=== PATIENT | female | born 1950 | race Caucasian/White ===

== ENCOUNTER 2016-11-07 13:52 | Inpatient (IN) | payer MEDICARE ==
[~2016-11-07] VITALS: Ht 160 cm; Wt 90.7 kg
[2016-11-07 16:14] LABS: HEMATOCRIT 41.5 % (36.0-48.0); HEMOGLOBIN 14.1 g/dL (12-16); LYMPHOCYTES 11.6 % (15-50); MCH 30.7 pg (26.0-34.0); MCV 90.4 fL (80.0-100.0); MEAN PLATELET VOLUME 10.2 fL (7.4-10.4); NEUTROPHILS 83.2 % (40-80); PLATELET COUNT 189 10x3/uL (130-400); RBC 4.59 10x6/uL (4.00-5.40); RDW 12.8 % (11.5-14.5); WBC 9.9 10x3/uL (4.8-10.8)
[2016-11-07 16:23] LABS: APTT 20.6 SECONDS (22.8-39.4); INR 0.91 (0.85-1.17)
[2016-11-07 16:56] LABS: ALBUMIN 3.6 g/dL (3.4-5.0); ALKALINE PHOSPHATASE 100 U/L (46-116); ALT (SGPT) 20 U/L (10-68); BILIRUBIN - TOTAL 0.29 mg/dL (0.2-1.3); CALC OSMOLALITY 289 mosm/kg (275-300); CALCIUM 8.9 mg/dL (8.5-10.1); CARBON DIOXIDE 26.6 mmol/L (21.0-32.0); CHLORIDE - SERUM 104 mmol/L (98-107); CREATININE - SERUM 0.6 mg/dL (0.6-1.3); GLUCOSE 243 mg/dL (74-106); POTASSIUM - SERUM 4.2 mmol/L (3.5-5.1); PROTEIN - SERUM 6.8 g/dL (6.4-8.2); SODIUM 141 mmol/L (136-145); UREA NITROGEN 15 mg/dL (7-18); eGFR NON AFRICAN AMERICAN > 90 mL/min (90-120)
--- NOTE | 2016-11-07 23:10 | NUR ---
RECEIVED PT FROM RECOVERY. DAUGHTER AT BEDSIDE. COMPLETED ASSESSMENT. PT DENIES NEEDS AT THIS TIME. BED IN LOWEST POSITION AND CALL LIGHT WITHIN REACH. ENCOUARAGED THE PATIENT TO CALL IF SHE HAS NEEDS.
[2016-11-07] MEDS ORDERED: GLUCOPHAGE1000 MG PO (23:18)
[2016-11-07] MEDS ORDERED: LOPRESSOR25 MG PO (23:19)
[2016-11-07 23:32] VITALS: BP 144/84; BMI 35.5
[2016-11-08 04:00] VITALS: BP 116/59
[2016-11-08 05:54] LABS: HEMATOCRIT 36.4 % (36.0-48.0); HEMOGLOBIN 11.9 g/dL (12-16)
--- NOTE | 2016-11-08 07:30 | NUR ---
PATIENT RECEIVED IN MID RANKIN POSITION. NO SIGNS OF DISTRESS NOTED. DRESSING TO LEFT KNEE CLEAN, DRY AND INTACT WITH KNEE IMMOBILIZER IN PLACE. RATES PAIN 3/10. 5MG OXY IR ADMINISTERED PER PRN ORDER. NO FURTHER NEEDS VOICED. SIDE RAILS UP X2. BED IN LOW POSITION. CALL LIGHT IN REACH.
--- NOTE | 2016-11-08 08:20 | OP ---
PATIENT NAME: MATTHEW GARAY KATHRYN MEDICAL RECORD: [id number] :48 LOCATION:[id number] ADMISSION DATE:11/07/16 SURGEON: GEORGE RANGEL DO OPERATION DATE: 11/07/16 DATE OF OPERATION: 11/07/2016 PROCEDURE PERFORMED: Left intraarticular distal femur open reduction internal fixation and retrograde intramedullary nailing of the left femur. INDICATIONS: Intraarticular left distal femur fracture that Ms. Garay sustained at work when she tripped and fell and then could not bear weight on her left leg. She was taken to the ER by ambulance and x-rayed and seen to have a left distal femur fracture went into the articular surface. A CT was done confirming diagnosis and the patient opted to go to the operating room. After discussing the risks and benefits with the patient, she consented to it. PREOPERATIVE DIAGNOSIS: Left distal femur intraarticular fracture, closed. POSTOPERATIVE DIAGNOSIS: Left distal femur intraarticular fracture, closed. SURGEON: George Rangel DO. MAPPING EDITOR: Magalys Fisher, advanced nurse practitioner. PROCEDURE PERFORMED: As above. DESCRIPTION OF PROCEDURE: Ms. Garay is a 66-year-old female that came in through the ER. She was brought to the OR and in PACU given a femoral block for pain control and then taken back to the operative suite. She was placed in supine position in the ER bed and was sedated and intubated at that time, then moved over to the OR bed. Two grams Ancef were given preoperatively. Timeout was then performed and all parties were in agreement with the correct patient, correct side, and correct procedure was being performed. The left lower extremity was then prepped and draped in sterile fashion and the procedure started making an incision over the inferior part of the patella. The peritenon was incised and the patellar tendon was divided in half. The condyles were felt to be too to try to do a blind reduction and at that time an arthrotomy was performed. Incision was enlarged and medial parapatellar arthrotomy was performed and the knee joint was opened and the reduction was performed having exact reductions being held with a [id number] clamp. Two drills were then placed in the anterior aspect of the distal femur to hold the reduction and at that time, the insertion was made of the guide pin for the IM nail. The opening reamer was then placed over it and the starting reamer was reamed into the distal femur. A reduction tool was then used up into the shaft of the femur and the distal femur fracture was reduced to the shaft having the intercondylar fracture previously reduced with the bone clamps and the 2 drill bits and at that time, the guidewire was placed up into the shaft and up into the proximal femur just above the lesser trochanter. Length was then measured of the nail, which was a 340 mm was then reamed up to a 10-1/2 mm and was seen that a further reduction was required prior to getting 10-1/2 half and a drill was placed on the medial side of the guide pin just proximal to the distal femur fracture and then continued to ream up to 10-1/2. We decided there was enough chatter in the bone. At that time we used a 9 mm nail and the nail was then entered into the distal femur first and then up into the shaft, this was all OPERATIVE REPORT [id number] MATTHEW GARAY confirmed with fluoroscopy. Once the nail was set and seen to be in good position, the jig was placed on and the 2 distal screws went in from the lateral to the medial side. The oblique screw from medial to lateral side was then placed as well through the jig and the jig was removed. At that time, the 2 drill bits that had been placed prior to the nailing in the distal femur to hold the articular reduction were measured in order to use lag screws and they were placed at that time. There were 60 mm x 6.5 mm cannulated screws that were placed in that over those drill sites, seen to have a very good reduction and the rotation and alignment was adequate. Then, attention was then drawn to the proximal femur. Perfect circles were made and the very distal hole of the nail was used. The drill was placed through the anterior surface of the femur and then through the nail and then through the posterior cortex of the femur was measured to be a 36-mm screw and that was put into place. At this time, x-rays were taken and at the distal portion of the knee, the oblique screw from medial to lateral seemed to be too long and was removed at that time. The wounds were then copiously irrigated. The 2 liters of normal saline was used to irrigate the knee joint itself. The proximal incision where the locking screw was placed was irrigated as well and was closed with 2-0 Vicryl in an inverted interrupted fashion of the skin and then 3-0 Monocryl rather in a horizontal mattress fashion as were the other poke holes about the femur. The arthrotomy was closed with #1 Vicryl using a [id number]-[id number] stitch and the peritenon as well as patellar tendon were also closed. The peritenon was closed with 0 Vicryl, again irrigated over the closure and skin was approximated with 2-0 Vicryl and the ZipLine device was then used to close the skin over the knee and the other focal wounds for the screws. They went through the nail were closed with 2-0 Vicryl and 3-0 Monocryl in a horizontal mattress fashion. A 2-0 Vicryl was used in inverted interrupted fashion. After this, the skin was cleaned very thoroughly. Adaptic, 4 x 4s and ABD was placed over the distal part of the femur. At the proximal portion of the incision, 4 x 4s and Tegaderm and prior to that Adaptic was placed over that site. A Webril was then placed over the ABD of the distal portion over the knee and 6-inch Matthew wrap was placed as well. STEPHANIE hose was placed on her left lower extremity just to the knee and the patient was placed in a knee immobilizer. She was awakened in the operating room in stable condition and taken to the recovery room. TOTAL BLOOD LOSS: 300 mL. TRANSINT:[id number] Voice Confirmation ID: [id number] DOCUMENT ID: [id number] GEORGE RANGEL DO at 0820 CC: [id number] DICTATION DATE: 11/07/162220 COAL PASSER: 11/08/16 0247 ADM IN [facility] [address] [place] [address]
[2016-11-08 09:15] VITALS: BP 137/64
[2016-11-08] MEDS ORDERED: GLIMEPIRIDE4 MG PO (10:26)
[2016-11-08] MEDS ORDERED: CLARITIN 10 MG10 MG PO (10:26)
[2016-11-08] MEDS ORDERED: PRAVACHOL20 MG PO (10:26)
[2016-11-08] MEDS ORDERED: GLIMEPIRIDE2 MG PO (10:26)
[2016-11-08] MEDS ORDERED: ACTOS45 MG PO (10:26)
[2016-11-08] MEDS ORDERED: VITAMIN E400 UNI2 PO (10:27)
[2016-11-08] MEDS ORDERED: TAPAZOLE 10 MG10 MG PO (10:27)
[2016-11-08] MEDS ORDERED: CALCIUM 500 + D1 TAB PO (10:27)
[2016-11-08] MEDS ORDERED: COZAAR50 MG PO (10:27)
[2016-11-08 10:49] LABS: ALBUMIN 2.9 g/dL (3.4-5.0); ALKALINE PHOSPHATASE 75 U/L (46-116); ALT (SGPT) 20 U/L (10-68); BILIRUBIN - TOTAL 0.33 mg/dL (0.2-1.3); CALC OSMOLALITY 289 mosm/kg (275-300); CALCIUM 7.7 mg/dL (8.5-10.1); CARBON DIOXIDE 25.9 mmol/L (21.0-32.0); CHLORIDE - SERUM 107 mmol/L (98-107); CREATININE - SERUM 0.6 mg/dL (0.6-1.3); GLUCOSE 257 mg/dL (74-106); POTASSIUM - SERUM 4.2 mmol/L (3.5-5.1); PROTEIN - SERUM 5.9 g/dL (6.4-8.2); SODIUM 141 mmol/L (136-145); UREA NITROGEN 13 mg/dL (7-18); eGFR NON AFRICAN AMERICAN > 90 mL/min (90-120)
--- NOTE | 2016-11-08 10:54 | NUR ---
PATIENT ALERT IN BED WITH FAMILY PRESENT. C/O PAIN 10/22. ULTRAM PER PRN ORDER. DENIES FURTHER NEEDS. SIDE RAILS UP X2. BED IN LOW POSITION. CALL LIGHT IN REACH.
[2016-11-08 11:36] LABS: BASOPHILS 0.1 % (0-2); EOSINOPHILS 0 % (0-7); HEMATOCRIT 36.1 % (36.0-48.0); HEMOGLOBIN 11.8 g/dL (12-16); IMMATURE GRANULOCYTES 0.1 % (0-5); LYMPHOCYTES 7.6 % (15-50); MCH 31.1 pg (26.0-34.0); MCHC 32.7 g/dL (31.0-37.0); MEAN PLATELET VOLUME 11.1 fL (7.4-10.4); MONOCYTES 10.2 % (2-11); PLATELET COUNT 225 10x3/uL (130-400); RBC 3.79 10x6/uL (4.00-5.40); RDW 13.6 % (11.5-14.5); WBC 9.3 10x3/uL (4.8-10.8)
[2016-11-08 11:44] LABS: MCV 95.3 fL (80.0-100.0)
--- NOTE | 2016-11-08 12:00 | NUR ---
PATIENT IN MID RANKIN POSITION RESTING WITH EYES CLOSED. RESPIRATIONS EVEN AND UNLABORED. SIDE RAILS UP X2. BED IN LOW POSITION. CALL LIGHT IN REACH.
[2016-11-08 12:57] VITALS: BP 137/54
[2016-11-08 13:39] VITALS: Ht 160 cm; Wt 90.7 kg
[2016-11-08 15:45] VITALS: BP 133/57
--- NOTE | 2016-11-08 16:31 | NUR ---
Rehab Prescreening Consult recieved and the chart has been reviewed. She is a good IRFG candidate but is [employer] which will require a preauthorization for the IRF. The JUDY Ford has been made aware. Sharon Shipman RN Clinical Liaison, Rehab
--- NOTE | 2016-11-08 16:40 | NUR ---
ALERT IN BED WITH FAMILY PRESENT. NO SIGNS OF DISTRESS NOTED. ACCU CHECK 263. INSULIN PER SLIDING SCALE. INCENTIVE SPIROMETER AND USE ON TEACHING PROVIDED. DEMONSTRATES CORRECT USE. SCHEDULED PO MEDICATION ADMINISTERED WELL OXY IR FOR PAIN 10/22. DENIES NEEDS. SIDE RAILS UP X2. BED IN LOW POSITION. CALL LIGHT IN REACH.
[2016-11-08 20:00] VITALS: BP 136/55
[2016-11-09] VITALS: BP 123/53
--- NOTE | 2016-11-09 03:56 | NUR ---
ASSESSED AT THE BEAGINNNING OF THE SHIFT. PT IS ALERT AND ORIENTED, ABLE TO VERBALIZE NEEDS. SHE IS USING THE BEDPAN AND SHE USES THE CALL LIGHT TO GET ASSIST. EARLY IN THE SHIFT SHE WAS STILL RUNNING OVER 101. TEMP ANDF THE MD WAS CALLED, THIS TIME WE USED THE I.S. AND ALSO GAVE HER TYLENOL. LATER IT WAS DOWN TO 100.0 AND STILL LATER DOWN TO 99. SHE IS ABLE TO ASSIST WITH TURNING AND GETTING ON THE BED CAGE. THE BED IS LOW, RAILS UP X'S 2 FWITH THE CALL LIGHT AT HAND.
[2016-11-09 04:00] VITALS: BP 119/54
[2016-11-09 05:27] LABS: ALBUMIN 2.6 g/dL (3.4-5.0); ALKALINE PHOSPHATASE 65 U/L (46-116); ALT (SGPT) 16 U/L (10-68); BILIRUBIN - TOTAL 0.58 mg/dL (0.2-1.3); CALC OSMOLALITY 283 mosm/kg (275-300); CALCIUM 7.9 mg/dL (8.5-10.1); CARBON DIOXIDE 24.7 mmol/L (21.0-32.0); CHLORIDE - SERUM 105 mmol/L (98-107); CREATININE - SERUM 0.6 mg/dL (0.6-1.3); POTASSIUM - SERUM 3.8 mmol/L (3.5-5.1); PROTEIN - SERUM 5.4 g/dL (6.4-8.2); SODIUM 139 mmol/L (136-145); UREA NITROGEN 14 mg/dL (7-18); eGFR NON AFRICAN AMERICAN > 90 mL/min (90-120)
[2016-11-09 05:30] LABS: GLUCOSE 181 mg/dL (74-106)
[2016-11-09 05:55] LABS: HEMATOCRIT 29.9 % (36.0-48.0); HEMOGLOBIN 9.9 g/dL (12-16); LYMPHOCYTES 13.1 % (15-50); MCH 30.7 pg (26.0-34.0); MCHC 33.1 g/dL (31.0-37.0); MEAN PLATELET VOLUME 10.7 fL (7.4-10.4); NEUTROPHILS 72.5 % (40-80); PLATELET COUNT 190 10x3/uL (130-400); RBC 3.23 10x6/uL (4.00-5.40); RDW 13.1 % (11.5-14.5); WBC 10.6 10x3/uL (4.8-10.8)
[2016-11-09 05:58] LABS: MCV 92.6 fL (80.0-100.0)
[2016-11-09 07:10] LABS: APPEARANCE CLEAR (CLEAR); BILIRUBIN NEGATIVE (NEGATIVE); COLOR YELLOW (YELLOW); GLUCOSE 1000 mg/dL (NEGATIVE); KETONE MODERATE mg/dL (NEGATIVE); LEUKOCYTE ESTERASE NEGATIVE (NEGATIVE); NITRITE NEGATIVE (NEGATIVE); PROTEIN NEGATIVE (NEGATIVE); SPECIFIC GRAVITY 1.015 (1.005-1.020); UROBILINOGEN NORMAL (NORMAL)
--- NOTE | 2016-11-09 07:15 | NUR ---
REPORT RECIEVED ASSUMED CARE. PATIENT IN BED WITH IV INTACT. NO COMPLAINTS AT THIS TIME. CALL LIGHT WITHIN REACH.
--- NOTE | 2016-11-09 07:45 | NUR ---
ASSESSMENT COMPLETE, VS STABLE. IV INTACT. NO COMPLAINTS AT THIS TIME. PAIN MEDS GIVEN. DRESSING TO LEG AND IMMOBILIZER INTACT. CALL LIGHT WITHIN REACH.;
[2016-11-09 08:32] VITALS: BP 131/55
--- NOTE | 2016-11-09 10:17 | NUR ---
Called [facility] [phone] spoke to Jeanna. No preauthorization for IRF is required by [facility]. This patient meets criteria for inpatient rehab and will be accepted when she is medically stable and the physician agrees. The Liliana Colmenares RN has been made aware. Sharon Shipman RN Clinical Liaison, Rehab
--- NOTE | 2016-11-09 10:18 | NUR ---
OT NOTE: PT PERFORMED BETTER TODAY WITH ROLLING TO SIDE SO THAT BED CAGE COULD BE POSITIONED UNDER HER. PT REQUIRES MAX ASSIST WITH BED MOB INCLUDING SUPINE TO SIT; MAX ASSIST X 2 FOR SIT TO STAND; MAX X 2 FOR PIVOT TRANSFER TO CHAIR WITH EXT TIME AND FREQ CUES FOR STRAIGHTENING ARMS TO ASSIST WITH INCREASED SUPPORT FROM WALKER. PT REPORTS PAIN OF 10/10 FOLLOWING TRANSFER. CONTINUED CUES TO REASSURE PT THAT SHE WAS NOT WT BEARING THROUGH L LE. PT VERY FEARFUL.
[2016-11-09] MEDS ORDERED: LOVENOX40 MG/0.4 SC (12:09)
[2016-11-09] MEDS ORDERED: IPRAT-ALBUT 0.5-3 ML UPD (12:09)
[2016-11-09] MEDS ORDERED: ACETAMINOPHEN325 MG PO (12:10)
[2016-11-09] MEDS ORDERED: PROTONIX40 MG PO (12:10)
[2016-11-09] MEDS ORDERED: ATARAX 25 MG TA25 MG PO (12:10)
[2016-11-09] MEDS ORDERED: ONDANSETRON4 MG/2 M3 IV (12:10)
[2016-11-09] MEDS ORDERED: HUMALOG 30100 UNITS/ SC (12:11)
[2016-11-09 12:38] VITALS: BP 135/59
[2016-11-09] MEDS ORDERED: OXYCODONE HCL5 MG PO (12:42)
[2016-11-09 16:12] VITALS: BP 135/58
--- NOTE | 2016-11-09 16:52 | NUR ---
Patient Name: MATTHEW GARAY Admission Status: ER Accout number: [id number] Admission Date: 11-07-2016 : 1950 Admission Diagnosis:DISPL SUPRCNDL FX W/O INTRCNDL EXTN LOWER END L FEMUR, Attending: BELEN Current LOS: 2 Anticipated DC Date: 11-09-2016 Planned Disposition: Inpatient Rehab Primary Insurance: [facility] PF Discharge Planning Comments: CM MET WITH PATIENT REGARDING D/C NEEDS AND PLANS. PATIENT STATED SHE LIVES WITH HER SPOUSE (THOR). PATIENT STATED THEY HAVE ONE STEP TO ENTER HOME AND NO STAIRS INSIDE. PATIENT STATED SHE IS INDEPENDENT WITH HER CARE AND HAS A GLUCOMETER AT HOME AND CHECKS WHEN SHE REMEMBERS. PATIENTS PCP IS DR. LOPEZ AND USES [facility] IN [place]. PATIENT IS GOING TO IP REHAB TODAY AND SPOUSE IS AWARE OF THIS. CM WILL CONTINUE TO FOLLOW PATIENT WITH D/C NEEDS AND PLANS. PCP DR. LOPEZ [facility]- [phone] THOR (SPOUSE) [phone] Metallurgy Laboratory Technician: Liliana Blackwood Is the patient Alert and Oriented? Yes 0 * How many steps to enter\exit or inside your home? 1 0 * PCP DR. LOPEZ 0 * Pharmacy [facility] [place] 0 * Preadmission Environment Home with Family 0 * ADLs Independent 0 * Equipment Glucometer 0 * List name and contact numbers for known caregivers / representatives who currently or will assist patient after discharge: THOR (SPOUSE) [phone] 0 * Community resources currently utilized None 0 * Additional services required to return to the preadmission environment? Yes 0 * Can the patient safely return to the preadmission environment? Yes 0 * Has this patient been hospitalized within the prior 30 days at any hospital? No 0 Grand Total: 0
--- NOTE | 2016-11-09 17:00 | NUR ---
REPORT CALLED TO REHAB. EXPLAINED THAT IT MAYBE LATER WHEN PATIENT GOS DOWN THERE BC SHE HAS TO GET BC'S DRAWN. VERBALIZED UNDERSTANDING. PATIENT IN BED WITH IV INTACT. CALL LIGHT WITHIN REACH. REFUSED FOR BLOOD TO BE DRAWN UNTIL AFTER SHE EATS.
--- NOTE | 2016-11-09 18:00 | NUR ---
PATIENT BLOOD CX'S DRAWN AT THIS TIME. PATIENT REPOSITIONED. DAY CARE DIRECTOR HELPING WITH PERSONAL BELONGINGS. CALL LIGHT WITHIN REACH.
--- NOTE | 2016-11-09 18:03 | NUR ---
OT NOTE: PT COMPLETED GROOMING TASK WITH SET UP. THANK YOU, ROYCE BARRERA
--- NOTE | 2016-11-09 19:09 | NUR ---
PATIENT TO REHAB PER DESIGN CELL ENGINEER'S AT THIS TIME WITH PERSONAL BELONGINGS.
== END 2016-11-09 19:13 | DRG 481 ==
LOC: D.ER 13:52 → D.MS 16:28
PROVIDERS: Emergency Medicine; Orthopaedic Surgery; ADMIT Family Medicine
PROC: 0QSC04Z Reposition Left Lower Femur with Internal Fixation Device, Open Approach (ICD-10-PCS; principal; 2016-11-07 16:00)
DX: S72.402A Unspecified fracture of lower end of left femur, initial encounter for closed fracture (principal); D62 Acute posthemorrhagic anemia; W01.0XXA Fall on same level from slipping, tripping and stumbling without subsequent striking against object, initial encounter; I10 Essential (primary) hypertension; E78.5 Hyperlipidemia, unspecified; E11.65 Type 2 diabetes mellitus with hyperglycemia

== ENCOUNTER 2016-11-09 19:10 | Inpatient (IN) | payer MEDICARE ==
[~2016-11-09] VITALS: Ht 160 cm; Wt 90.7 kg
--- NOTE | 2016-11-09 18:30 | NUR ---
RECEIVED PT FROM MEDICAL SURGICAL UNIT, PT ALERT AND ORIENTED.
[~2016-11-09 19:10] MED LIST: ACETAMINOPHEN325 MG PO; ACTOS45 MG PO; ATARAX 25 MG TA25 MG PO; CALCIUM 500 + D1 TAB PO; CLARITIN 10 MG10 MG PO; COZAAR50 MG PO; GLIMEPIRIDE2 MG PO; GLIMEPIRIDE4 MG PO; GLUCOPHAGE1000 MG PO; HUMALOG 30100 UNITS/ SC; IPRAT-ALBUT 0.5-3 ML UPD; LOPRESSOR25 MG PO; LOVENOX40 MG/0.4 SC; ONDANSETRON4 MG/2 M3 IV; OXYCODONE HCL5 MG PO; PRAVACHOL20 MG PO; PROTONIX40 MG PO; TAPAZOLE 10 MG10 MG PO; VITAMIN E400 UNI2 PO
[2016-11-09 23:11] VITALS: BP 135/55; BMI 35.5
--- NOTE | 2016-11-09 23:37 | NUR ---
ASSESSMENT COMPLETED FOR ADMISSION. PT. REQUESTING BEDPAN TO URINATE. ASSISTED PT. ON/OFF BEDPAN AND REPOSITIONED TO COMFORT AFTERWARDS WITHOUT ANY PROBLEMS. CALL LIGHT WITHIN REACH.
--- NOTE | 2016-11-10 01:07 | NUR ---
PT REST QUIETLY IN BED, EYE CLOSE, BED LOW, CALL LIGHT WITHIN REACH.
--- NOTE | 2016-11-10 06:44 | NUR ---
PHARMACY STAFF ISN'T HERE, UNABLE TO GIVE PT'S MED.
[2016-11-10 07:25] LABS: BASOPHILS 0.1 % (0-2); EOSINOPHILS 0.1 % (0-7); HEMATOCRIT 27.9 % (36.0-48.0); HEMOGLOBIN 9.5 g/dL (12-16); IMMATURE GRANULOCYTES 0.2 % (0-5); LYMPHOCYTES 9.8 % (15-50); MCH 31.6 pg (26.0-34.0); MCHC 34.1 g/dL (31.0-37.0); MCV 92.7 fL (80.0-100.0); MEAN PLATELET VOLUME 10.3 fL (7.4-10.4); MONOCYTES 10.5 % (2-11); NEUTROPHILS 79.3 % (40-80); PLATELET COUNT 200 10x3/uL (130-400); RBC 3.01 10x6/uL (4.00-5.40); RDW 13.4 % (11.5-14.5); WBC 9.6 10x3/uL (4.8-10.8)
[2016-11-10 07:30] VITALS: BP 143/57
--- NOTE | 2016-11-10 07:30 | NUR ---
PT IS RESTING IN BED WITH EYES OPEN. ALERT AND ORIENTED X 3. DENIES ACUTE PAIN OR DISCOMFORT. DRESSING TO LEFT LEG IS CDI. PT ASSISTED TO USE BEDPAIN WITH MAX ASSIST. VOIDED WITHOUT DIFFICULTY. IMMOBILIZER IS INTACT TO LEFT LEG. SR'S ARE UP X 3 IN BED. CALL LIGHT AND BEDSIDE TABLE ARE WITHIN EASY REACH. SPOUSE IS AT BEDSIDE.
[2016-11-10 07:38] LABS: CALC OSMOLALITY 277 mosm/kg (275-300); CALCIUM 8.4 mg/dL (8.5-10.1); CARBON DIOXIDE 27.6 mmol/L (21.0-32.0); CHLORIDE - SERUM 104 mmol/L (98-107); CREATININE - SERUM 0.5 mg/dL (0.6-1.3); GLUCOSE 145 mg/dL (74-106); POTASSIUM - SERUM 3.5 mmol/L (3.5-5.1); SODIUM 138 mmol/L (136-145); UREA NITROGEN 11 mg/dL (7-18); eGFR NON AFRICAN AMERICAN > 90 mL/min (90-120)
--- NOTE | 2016-11-10 09:38 | NUR ---
PT IS PARTICIPATING IN THERAPY AT THIS TIME.
[2016-11-10 12:25] VITALS: Ht 160 cm; Wt 90.7 kg
--- NOTE | 2016-11-10 12:43 | NUR ---
PT RESTING IN BED EATING LUNCH. NO DISTRESS NOTED. SPOUSE IN ROOM.
--- NOTE | 2016-11-10 14:36 | NUR ---
RESTING QUIETLY IN BED.VISITING WITH FAMILY.
--- NOTE | 2016-11-10 17:40 | NUR ---
PT IS FEEDING SELF SUPPER IN BED. NO DIFFICULTY NOTED. DAUGHTER AT BEDSIDE.
[2016-11-10 20:00] VITALS: BP 146/60
--- NOTE | 2016-11-10 20:00 | NUR ---
PT. IN BED WITH HOB UP FOR COMFORT. LLE BRACE/IMMOBILIZER IN PLACE. PT. DENIES ANY NEEDS AT THIS TIME. ASSESSMENT COMPLETED. CALL LIGHT WITHIN REACH.
--- NOTE | 2016-11-10 23:29 | NUR ---
PT. IN BED WITH HOB UP FOR COMFORT WITH EYES CLOSED AND RESP. EVEN. CALL LIGHT WITHIN REACH.
--- NOTE | 2016-11-11 03:19 | NUR ---
PT. IN BED WITH HOB UP FOR COMFORT. LLE BRACE/IMMOBILIZER IN PLACE. EYES CLOSED AND RESP. EVEN. CALL LIGHT WITHIN REACH.
--- NOTE | 2016-11-11 08:00 | NUR ---
PATIENT ALERT/ORIENT X4. PARMJIT WRAP TO LEFT LOWER EXTERMIETY. STEPHANIE HOSE ON. IMMOBILZER ON . SALIN LOCT TO RIGHT WRIST. PRN PAIN MEDICATION GIVEN FOR BACK PAIN.
[2016-11-11 10:29] VITALS: BP 129/47
--- NOTE | 2016-11-11 11:55 | NUR ---
GLUCOSE LEVEL 200. FOUR UNITS OF SLIDING SCALE INSULIN GIVEN
--- NOTE | 2016-11-11 14:10 | NUR ---
PATIENT IS A SLIDE BOARD TRANSFER FROM BED TO WHEELCHAIR. MAX ASST OF TWO.
--- NOTE | 2016-11-11 16:00 | NUR ---
CL IN REACH.WILL CONTINUE TO MONITOR.
--- NOTE | 2016-11-11 17:00 | NUR ---
GLUCOSE LEVEL 130. NO SLIDING SCALE INSULIN GIVEN.
--- NOTE | 2016-11-11 17:58 | NUR ---
PRN PAIN MEDICATION GIVEN FOR LEFT LEG PAIN.
[2016-11-11 20:00] VITALS: BP 159/64
--- NOTE | 2016-11-11 20:00 | NUR ---
PT. IN BED WITH HOB UP FOR COMFORT. ASSESSMENT COMPLETED. CALL LIGHT WITHIN REACH. BRACE/IMMOBILIZER IN PLACE TO LLE. PT. REQUESTING PAIN MEDS ORDERED TO KEEP PAIN LEVEL AT A MINIMUM.
--- NOTE | 2016-11-11 22:00 | NUR ---
PT. C/O PAIN IN HER LOWER LEFT LEG LIKE A RUBBER BAND AND IT'S BEEN THERE ALL DAY SHE REPORTS. PULLED PT'S STEPHANIE HOSE DOWN TO ANKLE AREA AND YOU CAN SEE THE BAND OF PRESSURE THAT THE STEPHANIE HOSE HAD CAUSED. UNFASTENED IMMOBILIZER AND ALLOWED ARE FREE OF ALL PRESSURE, EXCEPT PARMJIT WRAP THAT IS TO HER LEFT KNEE. INSTRUCTED PT. NOT TO MOVE HER LLE, BUT TO RELAX AND LET PAIN MED THAT I HAD ALREADY GIVEN HER EARLIER TO WORK. INSTRUCTED PT. I WOULD CHECK BACK IN ABOUT 30MIN TO SEE IF SHE GOT RELIEF. CALL LIGHT WITHIN REACH.
--- NOTE | 2016-11-11 22:30 | NUR ---
OPENED PT'S DOOR AND SHE IS SOUND ASLEEP WITH EYES CLOSED AND RESP. DEEP AND EVEN. CALL LIGHT REMAINS WITHIN REACH.
--- NOTE | 2016-11-11 23:24 | NUR ---
PT. IN BED WITH HOB UP FOR COMFORT WITH EYES CLOSED AND RESP. EVEN. CALL LIGHT WITHIN REACH.
--- NOTE | 2016-11-12 03:17 | NUR ---
PT. IN BED WITH HOB UP FOR COMFORT WITH EYES CLOSED AND RESP. EVEN. IMMOBILIZER TO LLE IN PLACE AND DUE TO STEPHANIE HOSE BEING TOO TIGHT ON LEG IT HAS BEEN LEFT PULLED DOWN FOR PT'S COMFORT. CALL LIGHT WITHIN REACH.
[2016-11-12 06:58] LABS: BASOPHILS 0.3 % (0-2); EOSINOPHILS 2.1 % (0-7); HEMATOCRIT 25.8 % (36.0-48.0); HEMOGLOBIN 8.5 g/dL (12-16); IMMATURE GRANULOCYTES 0.5 % (0-5); LYMPHOCYTES 20.1 % (15-50); MCHC 32.9 g/dL (31.0-37.0); MCV 94.2 fL (80.0-100.0); MEAN PLATELET VOLUME 10.1 fL (7.4-10.4); MONOCYTES 11.6 % (2-11); NEUTROPHILS 65.4 % (40-80); PLATELET COUNT 261 10x3/uL (130-400); RBC 2.74 10x6/uL (4.00-5.40); WBC 6.3 10x3/uL (4.8-10.8)
[2016-11-12 07:25] LABS: CALC OSMOLALITY 288 mosm/kg (275-300); CALCIUM 8.2 mg/dL (8.5-10.1); CARBON DIOXIDE 31.1 mmol/L (21.0-32.0); CHLORIDE - SERUM 104 mmol/L (98-107); CREATININE - SERUM 0.6 mg/dL (0.6-1.3); GLUCOSE 237 mg/dL (74-106); POTASSIUM - SERUM 3.8 mmol/L (3.5-5.1); SODIUM 140 mmol/L (136-145); UREA NITROGEN 17 mg/dL (7-18); eGFR NON AFRICAN AMERICAN > 90 mL/min (90-120)
--- NOTE | 2016-11-12 08:04 | NUR ---
SITTING UP IN BED EATING BREAKFAST. DENIES NEEDS OR C/O. CALL LIGHT IN REACH
[2016-11-12 08:31] VITALS: BP 136/62
--- NOTE | 2016-11-12 10:10 | NUR ---
DR. PAULINO INTO SEE PATIENT. NEW ORDERS FOR XR BILATERAL ANKLE 3V.
--- NOTE | 2016-11-12 11:21 | RHP ---
PATIENT: MATTHEW GARAY [facility] MEDICAL RECORD: [id number] ACCOUNT: [id number] LOCATION:[facility]1119 : [birth year] ADMISSION DATE: 11/09/16 REHABILITATION HISTORY AND PHYSICAL EXAMINATION POST ADMISSION PHYSICIAN EXAMINATION Post-Admission Physical Examination and History and Physical DATE OF ADMISSION: 11/09/2016 ADMITTING DIAGNOSIS: Left femur fracture. HISTORY OF PRESENT ILLNESS: The patient is a 66-year-old female patient, who had a left intra-articular distal femur fracture with open reduction. She had an internal fixation retrograde intramedullary nailing of the femur. She sustained a fracture at work when she tripped and fell, cannot bear weight on her left leg. She was taken to the ER by ambulance. X-ray showed a left distal femur fracture that went into articular surface. A CT done confirmed the diagnosis and she opted to go to the operating room. Postop, she did have a T-max of 101.7, postop anemia with an H&H of 9.9 and 29.9 and hyperglycemia, blood sugars ranging from 180-260. She is placed on insulin, intermediate resistance sliding scale. Chest x-ray is suggestive of mild vascular congestion. She was started on Levaquin and DuoNebs. Previously, she worked and lives with her , was independent with ADLs and mobility without assistance or device. Currently, she is moderate to max assist with ADLs and mobility. She plans to return home and get back with her spouse after she is discharged. COMORBIDITIES: Include mild vascular congestion, diabetes, history of TIA, postop fever, falls, hypertension, hyperlipidemia, asthma, and arthritis. PAST MEDICAL HISTORY: Significant for diabetes, hyperlipidemia, and hypertension. PAST SURGICAL HISTORY: Includes gallbladder surgery. ALLERGIES: CODEINE. CURRENT MEDICATIONS: Include Hoda 60 mg daily, Actos 45 mg daily, Protonix 40 mg daily, Tapazole 10 mg daily, Cozaar 50 mg daily, Amaryl 2 mg q.a.c., prior to dinner. She is on 4 mg at breakfast. She is on Lovenox 40 mg subQ daily, Os-Lamberto D daily, DuoNeb updrafts q.4 hours p.r.n., Pravachol 20 mg q.h.s., ____ 5 mg q.4 hours p.r.n., Zofran p.r.n. nausea and vomiting, metoprolol 25 mg b.i.d., metformin 1000 mg b.i.d., Atarax 50 mg q.6 hours as needed, Tylenol 650 mg q.4 hours p.r.n., insulin and Glucagon as needed for hypoglycemia and she is on an intermediate resistant sliding scale with Humalog. HABITS: No alcohol or tobacco use. FAMILY HISTORY: Noncontributory. SOCIAL HISTORY: The patient hopes to return back home with her and get back to her prior level of functioning. REVIEW OF SYSTEMS: HISTORY AND PHYSICAL [id number] JARRODMATTHEW GENERAL: Does complain of weakness and fatigue. HEENT: She denies cold, cough, or congestion. CARDIOVASCULAR: Denies chest pain. PHYSICAL EXAMINATION: VITAL SIGNS: Stable, afebrile. GENERAL: A well-developed elderly female, who is somewhat obese. HEENT: Normocephalic and atraumatic. Mucosa moist. NECK: Supple. No lymphadenopathy. LUNGS: Clear at this time. HEART: Noted to be somewhat tachycardic. ABDOMEN: Benign. EXTREMITIES: Does have changes consistent with postop swelling, although which is appropriate. NEUROLOGIC: Seems intact. LABORATORY DATA: Her white count was 9.6, H&H 9.5 and 27.9, and platelet count is 200. Her sodium is 138, potassium 3.5, BUN and creatinine of 11 and 0.5 and blood sugar is noted to be 145. ASSESSMENT: This is a 66-year-old female patient admitted to rehab with a working diagnosis of status post open reduction internal fixation of a hip fracture. The patient has potential to make improvement. We instituted the following multidisciplinary therapies including to, but not limited to physical, occupational, respiratory, speech, nutritional services, prosthetics and orthotics. Given her complex condition and risk for more complications, rehabilitation services cannot be provided at a low level of care such as a longterm facility. PLAN: 1. Admit to [facility] rehab for intensive inpatient therapy to include the following disciplines: A. Physical therapy to improve gait, all transfer skills and bed mobility to a modified independent level. B. Occupational therapy to improve activities of daily living to a modified independent level. C. Case management to assist with discharge planning and placement options. D. Nutrition to assist with nutritional needs. E. Rehabilitation nursing to assist in monitoring the patient's underlying medical conditions and to assist with any type of bowel or bladder management. 2. The patient's current medication and medical care will be continued. 3. The patient will be placed on standard fall precautions. 4. The patient's estimated length of stay is approximately 7-10 days. 5. Discuss this patient during care team staff meeting this week. TRANSINT:[id number] Voice Confirmation ID: [id number] DOCUMENT ID: [id number] LISA notes whether there has been none or any medical/functional change since admission: - LISA attests patient continues to be appropriate for IRF: - HISTORY AND PHYSICAL [id number] MATTHEW GARAY SCOTT MD at 1121 CC: [id number] DICTATION DATE: 11/10/16 1212 SIMULATION EDUCATOR: 11/10/16 1545 ADM IN [place] [id number] [place] [id number]
--- NOTE | 2016-11-12 11:55 | NUR ---
GLUCOSE LEVEL 149. NO SLIDING SCALE INSULIN GIVEN
--- NOTE | 2016-11-12 12:22 | NUR ---
PATIENT GIVEN PRN PAIN MEDICATION FOR LEFT LEG PAIN.
--- NOTE | 2016-11-12 16:28 | NUR ---
PRN MIRALAX GIVEN FOR NO BOWEL MOVEMENT FOR THREE DAYS. PRN PAIN MEDICATION GIVEN FOR LEFT HIP PAIN.
--- NOTE | 2016-11-12 19:21 | NUR ---
PM ROUNDS MADE, PT TALKING ON CELL PHONE, INFORMED FAMILY MEMBER TO LET PT KNOW THAT I WILL BE BACK SHORTLY TO DO ASSESSMENT
[2016-11-12 20:00] VITALS: BP 145/63
--- NOTE | 2016-11-12 20:00 | NUR ---
ASSESSMENT PER FLOW SHEET, VS OBTAINED, PARMJIT WRAP CDI AROUND LEFT LEG, PT DENIES FLATUS, NO BM TODAY AND VOIDING WITH NO DIFFICULTY, INFORMED PT THAT I WILL BE BACK SHORTLY TO ADM 2100 MEDS, PT VERBALIZES UNDERSTANDING, REQUESTED AND SERVED FRESH H20, FAMILY MEMBER AT BEDSIDE
--- NOTE | 2016-11-12 21:35 | NUR ---
PT PLACED ON BED CAGE, PT VOIDED LARGE AMOUNT, BED CAGE REMOVED, PT CLEANED UP WITH WET WARM WASH CLOTHS, PINK CHUX AND BLUE PAD CHANGED, ADM 2100 MEDS AND PAIN MED PO PER MD ORDES, FSBS, ADM 4 UNITS OF INSULIN PER MD ORDERS, SEE EMAR, PT DENIES FURTHER NEEDS AT THIS TIME, FAMILY MEMBER AT BEDSIDE
--- NOTE | 2016-11-12 22:20 | NUR ---
PT RECEIVING RESP TX AT THIS TIME, SMALL DRESSHING CHANGED TO LEFT UPPER LEG, PT DENIES NEEDS OR PAIN AT THIS TIME
--- NOTE | 2016-11-13 00:27 | NUR ---
PT RESTING WITH EYES CLOSED, RESP QUIET, NO DISTRESS NOTED, LEFT UNDISTURBED AT THIS TIME
--- NOTE | 2016-11-13 02:23 | NUR ---
PT AWAKE, RECEIVING RESP TX, PT DENIES NEEDS OR PAIN AT THIS TIME
--- NOTE | 2016-11-13 03:00 | NUR ---
PT ELECTRONIC SECURITY TECHNICIAN LIGHT, PT PLACED ON BED CAGE, VOIDED BY SELF WITH NO DIFFICULTY, REMOVED FROM BED CAGE, CLEANED UP WITH WET WIPES, PT DENIES FURTHER NEEDS OR PAIN AT THIS TIME
--- NOTE | 2016-11-13 04:15 | NUR ---
PT PLACED ON BED CAGE, VOIDED SMALL AMOUNT, STATES "I GUESS I JUST HAD GAS", PT REMOVED FROM BED CAGE, CLEANED UP WITH WET WIPES, PT C/O LEFT LEG AND SHOULDER PAIN, ADM PAIN MED PO PER MD ORDERS, SEE EMAR, PT DENIES FURTHER NEEDS
[2016-11-13 05:35] LABS: BASOPHILS 0.3 % (0-2); EOSINOPHILS 3.1 % (0-7); HEMATOCRIT 25.6 % (36.0-48.0); HEMOGLOBIN 8.4 g/dL (12-16); IMMATURE GRANULOCYTES 0.4 % (0-5); LYMPHOCYTES 20.8 % (15-50); MCH 30.8 pg (26.0-34.0); MCHC 32.8 g/dL (31.0-37.0); MCV 93.8 fL (80.0-100.0); MEAN PLATELET VOLUME 9.6 fL (7.4-10.4); MONOCYTES 11.4 % (2-11); PLATELET COUNT 264 10x3/uL (130-400); RBC 2.73 10x6/uL (4.00-5.40); RDW 13.9 % (11.5-14.5); WBC 6.8 10x3/uL (4.8-10.8)
--- NOTE | 2016-11-13 05:53 | NUR ---
PT AWAKE, FSBS, ADM 0600 MEDS PO PER MD ORDERS, PT REQUESTED AND SERVED FRESH H20, DENIES FURTHER NEEDS OR PAIN AT THIS TIME, SPOUSE TO BEDSIDE
[2016-11-13 06:03] LABS: CALC OSMOLALITY 280 mosm/kg (275-300); CALCIUM 8.3 mg/dL (8.5-10.1); CARBON DIOXIDE 29.7 mmol/L (21.0-32.0); CHLORIDE - SERUM 102 mmol/L (98-107); CREATININE - SERUM 0.5 mg/dL (0.6-1.3); GLUCOSE 142 mg/dL (74-106); SODIUM 139 mmol/L (136-145); UREA NITROGEN 16 mg/dL (7-18); eGFR NON AFRICAN AMERICAN > 90 mL/min (90-120)
--- NOTE | 2016-11-13 07:00 | NUR ---
SHIFT REPORT TO DAY SHIFT
[2016-11-13 08:18] VITALS: BP 162/66
--- NOTE | 2016-11-13 08:35 | NUR ---
PATIENT IS ALERT/ORIENT X4. PARMJIT WRAP AND IMMOBILIZER ON LEFT LEG. PRN PAIN MEDICATION GIVEN PER PATIENT REQUEST FOR LEFT LEG PAIN.
--- NOTE | 2016-11-13 11:44 | NUR ---
GLUCOSE LEVEL 179. FOUR UNITS OF SLIDING SCALE INSULIN GIVEN
--- NOTE | 2016-11-13 15:40 | NUR ---
PRN PAIN MEDICATION GIVEN FOR LEFT LEG PAIN PER PATIENT REQUEST
--- NOTE | 2016-11-13 15:55 | NUR ---
NUTRITION MONITORING & EVAL CHART REVIEWED, PT OOR TO THERAPY. TOLERATING ADA DIET, WITH GOOD PO INTAKE. ~100% MOST MEALS. NO RECENT BM RECORDED. NOTE MIRALAX ON MED LIST. RD FOLLOWING
--- NOTE | 2016-11-13 17:26 | NUR ---
GLUCOSE LEVEL 134. NO SLIDING SCALE INSULIN GIVEN. PO MEDICATIONS GIVEN.
--- NOTE | 2016-11-13 18:48 | NUR ---
RESTING QUIETLY IN BED. DENIES NEEDS OR C/O. CALL LIGHT IN REACH
[2016-11-13 19:15] VITALS: BP 144/62
--- NOTE | 2016-11-13 19:15 | NUR ---
ASSESSMENT PER FLOW SHEET, VS OBTAINED, PARMJIT WRAP WITH IMMOBILIZER ON LEFT LEG INTACT, PT REPORTS FLATUS, NO BM AND VOIDING ON BED CAGE WITH NO DIFFICULTY, PT DENIES NEEDS OR PAIN AT THIS TIME
--- NOTE | 2016-11-13 20:33 | NUR ---
PT WATCHING TV, DENIES NEEDS AT THIS TIME
--- NOTE | 2016-11-13 21:09 | NUR ---
PT AWAKE, FSBS, ADM 2100 MEDS PER MD ORDERS, SEE EMAR, PT PLACED ON BED CAGE, UNABLE TO HAVE A BM, VOIDED LARGE AMOUNT, PINK PAD CHANGED, GOWN PLACED ON, PT DENIES FURTHER NEEDS AT THIS TIME, BED IN LOW POSITION, SIDE RAILS X 2, CALL LIGHT IN REACH, BED ALARM ON AND WORKING PROPERLY
--- NOTE | 2016-11-13 22:18 | NUR ---
PT RESTING WITH EYES CLOSED, RESP QUIET, NO DISTRESS NOTED, LEFT UNDISTURBED AT THIS TIME
--- NOTE | 2016-11-14 00:05 | NUR ---
PT RESTING WITH EYES CLOSED, RESP QUIET, NO DISTRESS NOTED, LEFT UNDISTURBED AT THIS TIME
--- NOTE | 2016-11-14 00:45 | NUR ---
PT PEDIATRIC CARE COORDINATOR LIGHT, PT PLACED ON BED CAGE, VOIDED LARGE AMOUNT PER SELF WITH NO DIFFICULTY, PT REMOVED FROM BED CAGE, MARGARITA CARE DONE WITH WET WIPES, PT REQUESTED AND PLACED MARGARITA PAD ON, PT REPOSITIONS SELF, C/O PAIN, ADM OXY IR PER MD ORDERS, SEE EMAR, PT DENIES FURTHER NEEDS
--- NOTE | 2016-11-14 02:33 | NUR ---
PT RESTING WITH EYES CLOSED, RESP QUIET, NO DISTRESS NOTED, LEFT UNDISTURBED AT THIS TIME
--- NOTE | 2016-11-14 04:20 | NUR ---
PT RESTING WITH EYES CLOSED, RESP QUIET, NO DISTRESS NOTED, LEFT UNDISTURBED AT THIS TIME
--- NOTE | 2016-11-14 05:22 | NUR ---
PT RESTING WITH EYES CLOSED, AROUSES TO SOFT VERBAL STIMUALTION, FSBS, ADM 0600 MED PO PER MD ORDERS, SEE EMAR, PT DENIES NEEDS AT THIS TIME
--- NOTE | 2016-11-14 05:49 | NUR ---
PT SOFTWARE QUALITY ASSURANCE ANALYST LIGHT, PT PLACED ON BED CAGE, VOIDED BY SELF WITH NO DIFFICULTY, PT REMOVED FROM BED CAGE, MARGARITA CARE DONE WITH WET WIPES, PINK PAD CHANGED, C/O PAIN, ADM OXY IR PER MD ORDERS, SEE EMAR, PT DENIES FURTHER NEEDS
--- NOTE | 2016-11-14 07:00 | NUR ---
SHIFT REPORT TO DAY SHIFT
--- NOTE | 2016-11-14 07:15 | NUR ---
REPORT RECEIVED FROM HUMAN RESOURCES OPERATIONS DIRECTOR NURSE. CALL LIGHT IN REACH.
[2016-11-14 08:36] VITALS: BP 145/57
--- NOTE | 2016-11-14 08:49 | NUR ---
ASSESSMENT COMPLETED. STATES PAIN OF 10 TO RIGHT FOOT WHEN SHE TURNS. OXY IR PO WITH AM MEDS ADMINISTERED. IN ROOM. CALL LIGHT IN REACH. WILL CONTINUE WITH PLAN OF CARE.
--- NOTE | 2016-11-14 09:49 | NUR ---
STATES PAIN HAS COME DOWN TO A 5. ALSO WOULD LIKE X-RAY OF RIGHT FOOT. WILL CALL
--- NOTE | 2016-11-14 10:14 | NUR ---
NEW ORDERS RECEIVED FOR RIGHT FOOT XRAY AND NYSTATIN CREAM.
--- NOTE | 2016-11-14 11:24 | NUR ---
PT REQUEST PAIN MEDICATION. PT UNABLE TO HAVE OXY FOR 1.5 HOURS. PT THEN REQ AND REC'D TYLENOL PER ORDERS FOR 8/10 PAIN TO LEFT KNEE. WCTM.
--- NOTE | 2016-11-14 11:58 | NUR ---
ASSISTED OFF OF BEDPAN. NYSTATIN CREAM APPLIED TO BILATERAL GROIN AREAS AND ABDOMINAL FOLDS. FSBS 187 SO 4 UNITS OF INSULIN SUBQ TO LEFT ARM. CALL LIGHT IN REACH.
--- NOTE | 2016-11-14 12:42 | NUR ---
OXY IR 10 MG PO PER C/O PAIN OF 6. FAMILY AT BEDSIDE. CALL LIGHT IN REACH.
--- NOTE | 2016-11-14 14:19 | NUR ---
BACK IN ROOM FROM THERAPY AT THIS TIME. DIFLUCAN PO. WANTS TO WAIT UNTIL AFTER COMPANY LEAVES TO DO SUPPOSITORY.
--- NOTE | 2016-11-14 15:33 | NUR ---
DULCOLAX SUPPOSITORY PER ORDER. PLACED ON BEDPAN.
--- NOTE | 2016-11-14 16:45 | NUR ---
CARE TEAM MEETING: PATIENT TENATIVE DISCHARGE DATE IS 11/26/16. SHE WILL RETURN HOME WITH HER SPOUSE WHEN DISCHARGED. DR. LOPEZ IS HER PCP AND SHE USES [facility] FOR HER MEDICATION NEEDS. WILL CONTINUE TO FOLLOW WITH PATIENT UNTIL DISCHARGED
--- NOTE | 2016-11-14 17:05 | NUR ---
HAS HAD 1 LARGE BM AND 1 SMALL BM. BLOOD SUGAR 111. METFORMIN AND AMARYL PO. CALL LIGHT IN REACH.
--- NOTE | 2016-11-14 18:22 | NUR ---
PLACED ON AND OFF BEDPAN. NO OTHER CHANGES IN INITIAL ASSESSMENT. DAUGHTER AT BEDSIDE. WILL CONTINUE WITH PLAN OF CARE.
--- NOTE | 2016-11-14 19:55 | NUR ---
PT. IN BED WITH HOB UP FOR COMFORT AND IS WATCHING TV. ASSESSMENT COMPLETED. ASSISTED ONTO BEDPAN AND PT. HAD A LOOSE BM. PT. CLEANED AND POSITIONED TO COMFORT. CALL LIGHT WITHIN REACH.
[2016-11-14 20:15] VITALS: BP 140/54
--- NOTE | 2016-11-14 23:18 | NUR ---
PT. IN BED WITH HOB UP FOR COMFORT WITH EYES CLOSED AND RESP. DEEP AND EVEN. CALL LIGHT WITHIN REACH.
--- NOTE | 2016-11-15 03:11 | NUR ---
PT. IN BED WITH HOB UP FOR COMFORT WITH EYES CLOSED AND RESP. DEEP AND EVEN. CALL LIGHT WITHIN REACH.
--- NOTE | 2016-11-15 08:00 | NUR ---
SITTING UP IN BED. AT BEDSIDE.BREAKFAST GIVEN.CL IN REACH.
[2016-11-15 09:46] VITALS: BP 143/55
--- NOTE | 2016-11-15 12:00 | NUR ---
eating lunch.cl in reach.
--- NOTE | 2016-11-15 19:48 | NUR ---
UP IN BED WATCING TV. NO S/S OF DISTRESS OBSERVED AT THIS TIME. CALL LIGHT AND OVERBED TABLE IN REACH.
--- NOTE | 2016-11-15 22:39 | NUR ---
ASSISTED ONTO BED CAGE. EARLIER STATED UNABLE TO USE RIGHT LEG . USED RIGHT LEG TO ASSIST HERSELF TO SIDERAIL. NO S/S OF DISTRESS OBSERVED AT THAT TIME. OVERBED TABLE AND CALL LIGHT IN REACH.
--- NOTE | 2016-11-16 01:42 | NUR ---
C/O RIGHT ANKLE PAIN OF LEVEL 5/10. GAVE PATIENT OXY IR 10MG PO.
[2016-11-16 02:38] VITALS: BP 120/55
--- NOTE | 2016-11-16 03:00 | NUR ---
RESTING IN BED WITH EYES CLOSED. HOB ELEVATED. NO S/S OF DISTRESS OBSERVED.CALL LIGHT AND OVERBED TABLE IN REACH.
--- NOTE | 2016-11-16 04:36 | NUR ---
RESTING IN BED WITH EYES CLOSED. NO S/S OF DISTRESS OBSERVED. CALL LIGHT AND OVERBED TABLE IN REACH. KNEE IMMOBIZER IN PLACE.
--- NOTE | 2016-11-16 07:39 | NUR ---
RESTING QUIETLY IN BED. NO S/S DISTRESS. CALL LIGHT IN REACH
--- NOTE | 2016-11-16 13:46 | NUR ---
PT REFUSED ORTHO BOOT STATING SHE HAD ONE AT HOME JUST LIKE THE ONE ORDERED. SHE ASKED HER TO GO HOME AND GET IT.
[2016-11-16 16:15] VITALS: BP 100/67
--- NOTE | 2016-11-16 19:12 | NUR ---
UP IN BED WITH GRANDDAUGHTER AT BEDSIDE. ALERT AND AWAKE. PLEASANT AND TALKATIVE. BRACE TO LEFT LEG IN PLACE. DENIES ANY PAIN AT THIS TIME.
--- NOTE | 2016-11-16 21:27 | NUR ---
C/O LEFT LEG PAIN AND REQUESTED PAIN MEDICATION. UP IN BED WITH TV ON AND GRANDDAUGHTER AT BEDSIDE. CALL LIGHT AND OVERBED TABLE IN REACH.
[2016-11-16 22:30] VITALS: BP 135/51
--- NOTE | 2016-11-16 23:03 | NUR ---
RESTING IN BED WITH EYES CLOSED. NO S/S OF DISTRESS OBSERVED. CALL LIGHT AND OVERBED TABLE IN REACH. GRANDDAUGHTER ASLEEP IN A-BED.
--- NOTE | 2016-11-17 00:15 | NUR ---
PT PEDIATRIC SPEECH LANGUAGE PATHOLOGIST LIGHT, PT PLACED ON BED CAGE, VOIDED LARGE AMOUNT, PT REMOVED FROM BED CAGE, ADULT BRIEF PLACED UNDER PT, PINK PAD CHANGED, PT DENIES FURTHER NEEDS, BED IN LOW POSITION, SIDE RAILS X 2, CALL LIGHT IN REACH, BED ALARM ON AND WORKING PROPERLY, GRANDDAUGHTER AT BEDSIDE
--- NOTE | 2016-11-17 08:20 | NUR ---
SITTING UP IN BED EATING BREAKFAST. FAMILY IN ROOM. HAD BED BATH AFTER BREAKFAST. STILL HAS IMMOBILIZER TO LLE IN PLACE.
--- NOTE | 2016-11-17 17:46 | NUR ---
SITTING UP IN BED. PAIN CONTROLLED WITH CURRENT MEDS. DENIES NEEDS. CALL LIGHT IN REACH
[2016-11-17 17:49] VITALS: BP 136/51
--- NOTE | 2016-11-17 19:50 | NUR ---
RESTING IN BED WITH EYES CLOSED. NO S/S OF DISTRESS OBSERVED. HEAD OF BED ELEVATED. BRACE TO LEFT LEG. EASILY AROUSES TO VERBAL STIMULI. DENIES ANY PAIN. DOES STATE THAT HER MUSCLE IN HER LEG JERKS AT TIMES AND FEELS LIKE A "ZING". CALL LIGHT AND OVERBED TABLE IN REACH.
--- NOTE | 2016-11-17 21:39 | NUR ---
RESTING IN BED WITH EYES CLOSED AND TV ON. EASILY AROUSES WITH VERBAL STIMULI. STATES PAIN MUCH BETTER. CALL LIGHT AND OVERBED TABLE IN REACH. CONTINENT OF BLADDER. USES BEDPAN.
--- NOTE | 2016-11-17 23:52 | NUR ---
RESTING IN BED WITH EYES CLOSED. NO S/S OF DISTRESS OBSERVED. CALL LIGHT AND OVERBED TABLE IN REACH.
[2016-11-18 00:58] VITALS: BP 134/53
--- NOTE | 2016-11-18 06:59 | NUR ---
RESTING QUIETLY IN BED. NO S/S DISTRESS. CALL LIGHT IN REACH
--- NOTE | 2016-11-18 15:55 | NUR ---
RESTING QUIETLY IN BED. IN ROOM WITH PT. LEG IMMOBILIZER STILL IN PLACE.
[2016-11-18 15:56] VITALS: BP 142/57
--- NOTE | 2016-11-18 18:22 | NUR ---
LAYING IN BED WATCHING TV. USES BEDPAN FOR ELIMINATION NEEDS. IS NWB TO BLE. IMMOBILIZER STILL IN PLACE TO LLE.
--- NOTE | 2016-11-18 19:25 | NUR ---
IN BED, AWAKE. NO COMPLAINTS AT THIS TIME.
--- NOTE | 2016-11-18 20:50 | NUR ---
PATIENT WAS ASSISTED WITH BEDPAN BY REECE MARTIN.
--- NOTE | 2016-11-18 22:43 | NUR ---
LYING IN BED WITH EYES OPEN AND TV ON. ASSISTED OFF BEDPAN. MEDIUM SIZE SOFT BM. PERICARE PROVIDED. DENIES ANY PAIN AT THIS TIME. CALL LIGHT AND OVERBED TABLE IN REACH.
--- NOTE | 2016-11-19 00:37 | NUR ---
RESTING IN [place] EYES CLOSED. NO S/S OF DISTRESS OBSERVED. CALL LIGHT AND OVERBED TABLE IN REACH.ALARM IN PLACE AND FUNCTIONAL.
[2016-11-19 00:55] VITALS: BP 152/61
--- NOTE | 2016-11-19 02:28 | NUR ---
RESTING IN BED WITH EYES CLOSED AT THIS TIME. CALL LIGHT AND OVERBED TABLE IN REACH.
--- NOTE | 2016-11-19 04:14 | NUR ---
ASSISTEDON AND OFF BEDPAN. CONTINENT OF BOWEL AND BLADDER. C/O HIP AND FOOT PAIN AND REQUEST A PAIN PILL. MEDICATION GIVEN PER ORDERS. CALL LIGHT AND OVERBED TABLE IN REACH.
[2016-11-19 05:49] LABS: BASOPHILS 0.2 % (0-2); EOSINOPHILS 2.7 % (0-7); HEMATOCRIT 29.7 % (36.0-48.0); HEMOGLOBIN 9.5 g/dL (12-16); IMMATURE GRANULOCYTES 1.5 % (0-5); LYMPHOCYTES 15.7 % (15-50); MCH 30.7 pg (26.0-34.0); MCV 96.1 fL (80.0-100.0); MONOCYTES 9.7 % (2-11); NEUTROPHILS 70.2 % (40-80); RBC 3.09 10x6/uL (4.00-5.40); RDW 13.9 % (11.5-14.5); WBC 8.1 10x3/uL (4.8-10.8)
[2016-11-19 05:51] LABS: PLATELET COUNT 489 10x3/uL (130-400)
[2016-11-19 06:10] LABS: CALC OSMOLALITY 281 mosm/kg (275-300); CALCIUM 8.8 mg/dL (8.5-10.1); CARBON DIOXIDE 31.6 mmol/L (21.0-32.0); CHLORIDE - SERUM 102 mmol/L (98-107); CREATININE - SERUM 0.6 mg/dL (0.6-1.3); GLUCOSE 159 mg/dL (74-106); POTASSIUM - SERUM 4.4 mmol/L (3.5-5.1); SODIUM 139 mmol/L (136-145); UREA NITROGEN 16 mg/dL (7-18); eGFR NON AFRICAN AMERICAN > 90 mL/min (90-120)
--- NOTE | 2016-11-19 07:18 | NUR ---
RESTING QUIETLY IN BED. NO S/S DISTRESS. CALL LIGHT IN REACH
[2016-11-19 10:40] VITALS: BP 146/62
--- NOTE | 2016-11-19 13:48 | NUR ---
RESTING QUIETLY IN W/C IN HER ROOM. LLE ELEVATED. IN ROOM WITH PT. DENIES NEEDS
[2016-11-19 19:27] VITALS: BP 134/57
--- NOTE | 2016-11-19 19:48 | NUR ---
PT IS RESTING IN BED WATCHING TV AND TALKING ON THE PHONE. ALERT AND ORIENTED X 4. IMMOBILIZER TO LEFT LEG IS ON AND INTACT. SUTURES TO LEFT GROIN ARE CDI. SR'S ARE UP X 3 IN BED. CALL LIGHT AND BEDSIDE TABLE ARE WITHIN EASY REACH.
--- NOTE | 2016-11-19 21:20 | NUR ---
PT IS RESTING IN BED WORKING ON A PUZZLE BOOK. NO NEEDS VOICED.
--- NOTE | 2016-11-19 23:44 | NUR ---
RESTING QUIETLY IN BED WITH EYES CLOSED. RESPS ARE EVEN AND UNLABORED. NO ACUTE DISTRESS NOTED.
--- NOTE | 2016-11-20 00:40 | NUR ---
RESTING QUEITLY IN BED, EYES CLOSED.
--- NOTE | 2016-11-20 04:23 | NUR ---
RESTING IN BED WITH EYES CLOSED.
--- NOTE | 2016-11-20 08:00 | NUR ---
SHIFT ASSMT COMPLETED.BREAKFAST GIVEN.DENIES NEEDS.LEFT LEG IMMOBILIZER INTACT.CL IN REACH.
--- NOTE | 2016-11-20 12:00 | NUR ---
EATING LUNCH.FAMILY AT BEDSIDE.
--- NOTE | 2016-11-20 15:54 | NUR ---
NUTRITION MONITORING & EVAL CHART REVIEWED. PT OOR. TOLERATING DIET WITH 75% INTAKE MEALS. RECENT BM RECORDED. RD FOLLOWING
[2016-11-20 18:00] VITALS: BP 118/56
[2016-11-20 19:30] VITALS: BP 136/58
--- NOTE | 2016-11-20 19:37 | NUR ---
PT IS RESTING IN BED WITH EYES OPEN. ALERT AND ORIENTED X 4. ASSISTED TO USE BEDPAN AT THIS TIME. SMALL SOFT BM NOTED, AND 300CC URINE. MARGARITA CARE GIVEN. PT STATES SHE HAS NOT FELT GOOD ALL DAY, BUT NO SPECIFIC COMPLAINTS VOICED. IMMOBILIZER IS INTACT TO LEFT KNEE. DRESSING TO LEFT GROIN IS CDI. FEMALE VISITOR IS AT THE BEDSIDE. SR'S ARE UP X 2 IN BED. CALL LIGHT AND BEDSIDE TABLE ARE WITHIN EASY REACH.
--- NOTE | 2016-11-20 21:32 | NUR ---
PT IS RESTING IN BED WATCHING TV. DAUGHTER IN ROOM WITH PT. NO NEEDS VOICED.
--- NOTE | 2016-11-21 00:01 | NUR ---
RESTING IN BED WITH EYES CLOSED.
--- NOTE | 2016-11-21 01:40 | NUR ---
IN BED, EYES CLOSED. RESPIRATONS UNLABORED.
--- NOTE | 2016-11-21 03:00 | NUR ---
PT ASSISTED TO USE BEDPAN. VOIDED 300CC. MARGARITA CARE GIVEN.
[2016-11-21 05:54] LABS: BASOPHILS 0.3 % (0-2); EOSINOPHILS 2.4 % (0-7); HEMATOCRIT 29.7 % (36.0-48.0); HEMOGLOBIN 9.5 g/dL (12-16); IMMATURE GRANULOCYTES 1.4 % (0-5); LYMPHOCYTES 21.3 % (15-50); MCH 30.4 pg (26.0-34.0); MCV 95.2 fL (80.0-100.0); MONOCYTES 9.4 % (2-11); NEUTROPHILS 65.2 % (40-80); PLATELET COUNT 543 10x3/uL (130-400); RBC 3.12 10x6/uL (4.00-5.40); RDW 13.7 % (11.5-14.5); WBC 7.2 10x3/uL (4.8-10.8)
--- NOTE | 2016-11-21 06:22 | NUR ---
PT IS RESTING IN BED WITH EYES CLOSED. SPOUSE IS AT BEDSIDE. AWOKE EASILY TO VERBAL STIMULI. ASSISTED TO USE BEDPAN. VOIDEDS 400CC WITHOUT DIFFICULTY.
[2016-11-21 06:24] LABS: CALC OSMOLALITY 283 mosm/kg (275-300); CALCIUM 8.7 mg/dL (8.5-10.1); CARBON DIOXIDE 31.2 mmol/L (21.0-32.0); CHLORIDE - SERUM 103 mmol/L (98-107); CREATININE - SERUM 0.6 mg/dL (0.6-1.3); POTASSIUM - SERUM 4.1 mmol/L (3.5-5.1); SODIUM 141 mmol/L (136-145); UREA NITROGEN 18 mg/dL (7-18); eGFR NON AFRICAN AMERICAN > 90 mL/min (90-120)
[2016-11-21 06:32] LABS: GLUCOSE 110 mg/dL (74-106)
--- NOTE | 2016-11-21 08:00 | NUR ---
SHIFT ASSMT COMPLETED.LT KNEE IMMOBOLIZER IN PLACE.CL IN REACH.DENIES NEEDS.HAD LOOSE BROWN STOOL NOTED.CLEANED;BREAKFAST GIVEN.
[2016-11-21 08:15] VITALS: BP 151/70
--- NOTE | 2016-11-21 10:49 | NUR ---
CALLED OFFICE TO SPEAK WITH MALLORY SANDERS APN AND RE: RIGHT ACHILLES. SAID HE WILL DISCUSS WITH MALLORY AJ BUT FOR PT TO CONTINUE IN BOOT FOR KNOW. STATED HE WILL CALL DR.SCOTT BEARD PERTAINING TO THE POC.
--- NOTE | 2016-11-21 17:07 | NUR ---
FSBS 67.SUPPER GIVEN.
[2016-11-21 19:45] VITALS: BP 145/55
--- NOTE | 2016-11-21 19:45 | NUR ---
PT RECEIVED LYING IN BED AAOX3 WATCHING TV AT THIS TIME. ASSESSMENT COMPLETED PER FLOW SHEET. PT DENIES NEEDS AT THIS TIME. BED LOW. PHONE AND CALL LIGHT IN REACH. SRX2.
--- NOTE | 2016-11-21 21:48 | NUR ---
PM MEDS GIVEN AT THIS TIME. PT DENIES NEEDS. BED LOW. PHONE AND CALL LIGHT IN REACH. SRX2.
--- NOTE | 2016-11-21 23:23 | NUR ---
PT RESTING QUIETLY AT THIS TIME WITH EYES CLOSED. RESPIRATIONS EVEN, NON-LABORED. NO ACUTE DISTRESS NOTED AT THIS TIME. BED LOW. PHONE AND CALL LIGHT IN REACH. SRX2.
--- NOTE | 2016-11-22 02:30 | NUR ---
PT MERGERS AND ACQUISITIONS BANKER LIGHT. REQUESTS ICE WATER AT THIS TIME. DENIES OTHER NEEDS. BED LOW. PHONE AND CALL LIGHT IN REACH. SRX2.
--- NOTE | 2016-11-22 07:36 | NUR ---
RESTING QUIETLY IN BED. NO S/S DISTRESS OR NEEDS. CALL LIGHT IN REACH
[2016-11-22 08:18] VITALS: BP 154/68
--- NOTE | 2016-11-22 16:30 | NUR ---
RESTING QUIETLY IN BED. STILL USES BEDPAN FOR ELIMINATION NEEDS. CALL LIGHT IN REACH
[2016-11-22 19:50] VITALS: BP 147/59
--- NOTE | 2016-11-22 19:50 | NUR ---
PT REHAB CARE ASSISTANT LIGHT REQUESTS TO GET OFF BED CAGE. PT HAD SMALL LOOSE BM AND VOIDED AT THIS TIME. ASSESSMENT COMPLETED PER FLOW SHEET. VITAL SIGNS TAKEN. PT REQUEST WASH CLOTH AT THIS TIME. DENIES OTHER NEEDS. BED LOW. PHONE AND CALL LIGHT IN REACH. SRX2.
--- NOTE | 2016-11-22 21:40 | NUR ---
PT REQUESTS TO USE BEDPAN AT THIS TIME. VOIDED AND HAD SMALL LOOSE BM. PM MEDS GIVEN. PT DENIES OTHER NEEDS. BED LOW. PHONE AND CALL LIGHT IN REACH. SRX2.
--- NOTE | 2016-11-22 22:17 | NUR ---
PT RESTING QUIETLY AT THIS TIME WATCHING TV. DENIES NEEDS. BED LOW. PHONE AND CALL LIGHT IN REACH. SRX2.
--- NOTE | 2016-11-23 03:20 | NUR ---
ASSISTED PT OFF BEDPAN AT THIS TIME. PT VOIDED. DENIES NEEDS. BED LOW. PHONE AND CALL LIGHT IN REACH. SRX2.
--- NOTE | 2016-11-23 05:47 | NUR ---
PROTONIX PO GIVEN AT THIS TIME. PT FSBS 138. PT REQUESTS COFFEE. DENIES OTHER NEEDS. BED LOW. PHONE AND CALL LIGHT IN REACH. SRX2.
--- NOTE | 2016-11-23 07:14 | NUR ---
RESTING QUIETLY IN BED. EYES CLOSED. NO S/S DISTRESS OR NEEDS. CALL LIGHT IN REACH.
[2016-11-23 08:04] VITALS: BP 154/71
--- NOTE | 2016-11-23 12:20 | NUR ---
IN W/C IN ROOM. IN ROOM WITH PT. DENIES NEEDS OR C/O. DENIES INCREASED PAIN OR NUMBNESS AND TINGLING.
--- NOTE | 2016-11-23 15:40 | NUR ---
AFTER VISITING WITH DR. AVILEZ PATIENT WOULD LIKE REFERRAL MADE TO [facility] FOR POSSIBLE ADMISSION. REFERRAL FAXED WITH SERENE SMITH
--- NOTE | 2016-11-23 18:26 | NUR ---
RESTING QUIETLY IN BED. STILL IN ROOM WITH PT. ZACHARY TAKEN OFF RT FOOT.
[2016-11-23 19:30] VITALS: BP 143/60
--- NOTE | 2016-11-23 20:00 | NUR ---
PT IN BED WITH HOB UP FOR COMFORT. WATCHING TV. NO O2. NO IV. AT BEDSIDE. FSBS ACHS. LEFT LEG IMMOBILIZER. BED IN LOWEST POSITION AND CALL LIGHT WIHTIN REACH.
--- NOTE | 2016-11-23 23:22 | NUR ---
PT. IN BED WITH HOB UP FOR COMFORT WITH EYES CLOSED AND RESP. EVEN. CALL LIGHT WITHIN REACH.
--- NOTE | 2016-11-24 03:00 | NUR ---
PT IN BED WITH HOB UP FOR COMFORT. EYES CLOSED. CHEST RISING AND FALLING. BED IN LOWEST POSITION AND CALL LIGHT WITHIN REACH.
--- NOTE | 2016-11-24 04:58 | NUR ---
PT LYING IN BED. EYES CLOSED. CHEST RISING AND FALLING. BED IN LOWEST POSITION AND CALL LIGHT WITHIN REACH.
[2016-11-24 08:00] VITALS: BP 151/67
--- NOTE | 2016-11-24 08:00 | NUR ---
VISITING,LEG IMMOBILIZER REMOVED;OK'D TO BE OFF IN BED;NWB LLE.LT LEG IMMOBILIZER ON WHEN OOB.INCISIONS INTACT.MACY CHANGED/.NO NEED TO REMOVE SUTURES IN KNEE THEY ARE REMOVEABLE.EL WELL BREAKFAST GIVEN.CL IN REACH.
--- NOTE | 2016-11-24 12:00 | NUR ---
EATING LUNCH. AT BEDSIDE.CL IN REACH.
--- NOTE | 2016-11-24 19:20 | NUR ---
PT LYING IN BED. GRANDDAUGHTER AT BEDSIDE. LEFT FEMUR FRACTURE. RIGHT TORN ACHILES. LEFT LEG NON-WEIGHT BEARING. BILATERAL LEG IMMOBILIZER'S TO BE WORN WHEN PT IS OUT OF BED. FSBS ACHS. BUTTOCKS PINK/RED BUTTPASTE APPLIED. CONTINENT. BED CAGE. LEFT GROIN SUTURES. BED IN LOWEST POSITION AND CALL LIGHT WITHIN REACH.
--- NOTE | 2016-11-24 19:22 | NUR ---
PT. IN BED LYING FLAT AND VISITING WITH HER DAUGHTER. PT. REQUESTED THAT HER NURSE MAKE SURE THAT HER HEELS ARE BRIDGED WHEN SHE TURNS ON HER SIDE AND THAT SHE HAS A BLANKET AT THE FOOT OF THE BED TO HELP DECREASE RISK OF FOOT DROP. INFORMED PT. THAT I WOULD LET JONATHAN PATHAK LPN KNOW OF HER REQUESTS. NO OTHER VOICED NEEDS AT THIS TIME AND HER CALL LIGHT IS WITHIN REACH. SPOKE WITH JONATHAN AND INFORMED HER OF PT'S REQUESTS.
[2016-11-24 19:30] VITALS: BP 149/62
--- NOTE | 2016-11-24 22:00 | NUR ---
BED BATH GIVEN AND FULL LINEN CHANGE WITH HELP OF GRANDDAUGHTER.
--- NOTE | 2016-11-24 23:30 | NUR ---
PT LYING IN BED. RESTING QUIETLY. BED IN LOWEST POSITION AND CALL LIGHT WITHIN REACH.
--- NOTE | 2016-11-25 00:44 | NUR ---
PT STATES SHE HAS NOT BEEN SLEEPING WELL AND WOULD LIKE SOMETHING FOR SLEEP. I INFORMED PT THAT I WOULD PUT I ON DR. BEARD'S SHEET AND THAT THE NEXT TIME SHE SEES HIM TO ASK HIM FOR SOMETHING FOR HER TO HELP HER SLEEP. SHE SAID, " OK. I WILL. THANK YOU."
--- NOTE | 2016-11-25 04:06 | NUR ---
PT LYING IN BED. EYES CLOSED. RESP. EVEN. BED IN LOWEST POSITION AND CALL WITHIN REACH.
[2016-11-25 08:00] VITALS: BP 141/56
--- NOTE | 2016-11-25 16:00 | NUR ---
RESTING QUIETLY.CL IN REACH.
--- NOTE | 2016-11-25 19:18 | NUR ---
PT. IN BED WITH HOB UP FOR COMFORT AND VISITING WITH HER SPOUSE. NO VOICED NEEDS AND CALL LIGHT IS WITHIN REACH.
[2016-11-25 19:30] VITALS: BP 132/43
--- NOTE | 2016-11-25 19:30 | NUR ---
PT LYING IN BED. ALERT & ORIENTED. AT BEDSIDE. READJUSTED PT ON HER SIDE. FSBS ACHS. LEFT LEG IMMOBILIZER. BED IN LOWEST POSITION AND CALL LIGHT WITHIN REACH.
--- NOTE | 2016-11-25 23:30 | NUR ---
PT IN BED WITH HOB UP FOR COMFORT. EYES CLOSED. CHEST RISING AND FALLING. BED IN LOWEST POSITION AND CALL LIGHT WITHIN REACH.
--- NOTE | 2016-11-26 03:30 | NUR ---
PT LYING IN BED. EYES CLOSED. CHEST RISING AND FALLING. AT BEDSIDE. BED IN LOWEST POSITION AND CALL LIGHT WITHIN REACH.
--- NOTE | 2016-11-26 04:09 | NUR ---
PT LYING IN BED. EYES CLOSED. CHEST RISING AND FALLING. BED IN LOWEST POSITION AND CALL LIGHT WITHIN REACH. AT BEDSIDE.
--- NOTE | 2016-11-26 08:34 | NUR ---
SITTING UP IN BED EATING BREAKFAST. PAIN CONTROLLED ON CURRENT PAIN MEDS. LLE IMMOBILIZER IN PLACE. PEDAL PULSES PRESENT X4. MAX ASST WITH ADL'S. IS NWB TO RLE.
[2016-11-26 09:32] VITALS: BP 149/76
--- NOTE | 2016-11-26 16:52 | NUR ---
IN W/C IN ROOM ROLLING AROUND GATHERING ITEMS TO D/C TOMORROW. SCHEDULED TO D/C TO [facility]. DENIES INCREASED PAIN. STILL WEARING LLE IMMOBILIZER AND HAS ON RLE ORTHO BOOT.
--- NOTE | 2016-11-26 17:57 | NUR ---
EATING SUPPER IN ROOM. DENIES NEEDS OR C/O. CALL LIGHT IN REACH
--- NOTE | 2016-11-26 19:36 | NUR ---
ASSISTED OF THE CPM WITH C/O KNEE PAIN. ASSISTED TO BEDPAN AND OFF.
--- NOTE | 2016-11-26 19:43 | NUR ---
C/O PAIN IN LEFT KNEE. REQUESTED MEDICATION. STATED "I HAVE'NT HAD ANY IN A WHILE".
--- NOTE | 2016-11-26 20:13 | NUR ---
LYING IN BED WITH EYES CLOSED AT THIS TIME. NO S/S OF DISTRESS OBSERVED. CALL LIGHT AND OVERBED TABLE IN REACH.
--- NOTE | 2016-11-27 00:19 | NUR ---
RESTING IN BED ON HER BACK. HOB ELEVBATED. NO S/S OF DISTRESS OBSERVED. CALL LIGHT AND OVERBED TABLE IN REACH.
[2016-11-27 03:06] VITALS: BP 131/59
--- NOTE | 2016-11-27 08:00 | NUR ---
SITTING UP IN BED EATING BREAKFAST. IN ROOM WITH PT. SHE HAS LLE IMMOBILIZER IN PLACE. DENIES INCREASED PAIN AT PRESENT.
--- NOTE | 2016-11-27 11:26 | NUR ---
PATIENT DISCHARGING TO [facility]. NO DME OR HH NEEDED AT THIS TIME. DR. RANGEL 12/10/16 @ 10:00. PATIENT CHOICE FORM FOR SNF AND [facility] FORM SIGNED, EXPLAINED AND FILED IN CHART. FAMILY AT BEDSIDE.
[2016-11-27] MEDS ORDERED: ELIQUIS2.5 MG PO (14:32)
--- NOTE | 2016-11-27 15:00 | NUR ---
D/C TO [facility] WITH ALL PERSONAL BELONGINGS. SURGICAL SERVICES [place] HERE FROM [place] TO TRANSPORT HER. LOADED ALL HER BELONGINGS IN HIS CAR TO DRIVE TO [place]. D/C PAPERWORK SENT WITH PT. SCRIPT FOR PAIN MEDS SENT WITH PAPERWORK. REPORT CALLED TO MANDIE AT [facility].
--- NOTE | 2016-11-27 15:08 | NUR ---
DISCHARGE CLINICALS HAND DELIVERED TO EBER KILLIAN RN, ACM FOR PATIENT DISCHARGE.
[2016-11-27 18:07] VITALS: BP 158/69
== END 2016-11-27 15:00 | DRG 561 ==
LOC: D.REHAB 19:10
PROVIDERS: Family Medicine; ADMIT Emergency Medicine
DX: S72.92XD Unspecified fracture of left femur, subsequent encounter for closed fracture with routine healing (principal); W19.XXXD Unspecified fall, subsequent encounter; T81.89XD Other complications of procedures, not elsewhere classified, subsequent encounter; I10 Essential (primary) hypertension; E78.5 Hyperlipidemia, unspecified; J45.909 Unspecified asthma, uncomplicated; M19.90 Unspecified osteoarthritis, unspecified site; R50.82 Postprocedural fever; R09.89 Other specified symptoms and signs involving the circulatory and respiratory systems; E11.65 Type 2 diabetes mellitus with hyperglycemia; E03.9 Hypothyroidism, unspecified

== ENCOUNTER → 2017-05-15 13:59 | Outpatient (CLI) | payer MEDICARE ==
[2016-11-10 12:25] VITALS: BMI 35.4
[~2017-05-15 13:59] MED LIST changes: +ELIQUIS2.5 MG PO
[2017-05-15 16:51] LABS: BASOPHILS 0.3 % (0-2); HEMATOCRIT 36.3 % (36.0-48.0); HEMOGLOBIN 11.7 g/dL (12-16); IMMATURE GRANULOCYTES 0.2 % (0-5); LYMPHOCYTES 24.5 % (15-50); MCH 30.2 pg (26.0-34.0); MCHC 32.2 g/dL (31.0-37.0); MCV 93.8 fL (80.0-100.0); MEAN PLATELET VOLUME 10.2 fL (7.4-10.4); MONOCYTES 8.3 % (2-11); NEUTROPHILS 64.7 % (40-80); RBC 3.87 10x6/uL (4.00-5.40); RDW 14.4 % (11.5-14.5); WBC 6.4 10x3/uL (4.8-10.8)
[2017-05-15 16:53] LABS: PLATELET COUNT 354 10x3/uL (130-400)
[2017-05-15 17:18] LABS: CREATINE KINASE 56 UL (21-215)
[2017-05-15 17:28] LABS: C-REACTIVE PROTEIN < 0.2 mg/dL (0.0-0.9)
[2017-05-15 17:53] LABS: ERYTHROCYTE SEDIMENTATION RATE 38 mm/hr (0-30)
== END | disposition home or self-care (01) ==
LOC: D.LABREF 13:59
PROVIDERS: Orthopaedic Surgery
DX: M25.511 Pain in right shoulder (principal)

== ENCOUNTER → 2017-11-04 12:04 | Outpatient (CLI) | payer MEDICARE, BC ==
[2016-11-10 12:25] VITALS: BMI 35.4
== END | disposition home or self-care (01) ==
LOC: D.RAD 10-30 10:30 → D.MRI 10-30 11:30 → D.RAD 12:04 → D.MRI 13:00 → D.RAD 13:00
DX: M25.511 Pain in right shoulder (principal)

== ENCOUNTER 2019-03-27 08:20 | Day surgery (SDC) | payer MEDICARE, BC ==
[~2019-03-27] VITALS: Ht 157.5 cm; Wt 82.6 kg
[~2019-03-27 08:20] MED LIST changes: +FUROSEMIDE20 MG PO
[2019-03-27 08:51] LABS: CALC OSMOLALITY 284 mosm/kg (275-300); CALCIUM 9.1 mg/dL (8.5-10.1); CARBON DIOXIDE 30.1 mmol/L (21.0-32.0); CHLORIDE - SERUM 108 mmol/L (98-107); CREATININE - SERUM 0.6 mg/dL (0.6-1.3); GLUCOSE 84 mg/dL (74-106); POTASSIUM - SERUM 4.5 mmol/L (3.5-5.1); SODIUM 143 mmol/L (136-145); UREA NITROGEN 15 mg/dL (7-18); eGFR NON AFRICAN AMERICAN > 90 mL/min (90-120)
[2019-03-27 08:52] LABS: HEMATOCRIT 37.4 % (36.0-48.0); HEMOGLOBIN 12.2 g/dL (12-16); MCH 30.1 pg (26.0-34.0); MCHC 32.6 g/dL (31.0-37.0); MCV 92.3 fL (80.0-100.0); MEAN PLATELET VOLUME 9.8 fL (7.4-10.4); RBC 4.05 10x6/uL (4.00-5.40); RDW 13.4 % (11.5-14.5); WBC 6.5 10x3/uL (4.8-10.8)
[2019-03-27 09:37] VITALS: BP 156/93; Ht 157.5 cm; Wt 82.6 kg
[2019-03-27] MEDS ORDERED: HYDROCODON-ACE1 EAC7 PO (12:05)
[2019-03-27] MEDS ORDERED: DURICEF500 MG PO (12:06)
--- NOTE | 2019-03-27 15:02 | NUR ---
1330 IV DC'D. CATHETER TIP INTACT. PRESSURE HELD UNTIL BLEEDING CEASED. BANDAID APPLIED.
--- NOTE | 2019-03-28 07:18 | OP ---
PATIENT NAME: MATTHEW GARAY [facility] MEDICAL RECORD: [id number] :49 LOCATION:[facility] ADMISSION DATE: SURGEON: GEORGE RANGEL DO DATE OF OPERATION: 03/27/2019 PROCEDURE PERFORMED: Right middle finger A1 bradley release. PREOPERATIVE DIAGNOSIS: Right middle finger trigger finger. POSTOPERATIVE DIAGNOSIS: Right middle finger trigger finger. INDICATIONS: Ms. Garay is a 68-year-old female who has had right middle finger, been catching and locking and she had to unlock it herself. She is tired of dealing with that and wanted something done about it. I informed her of the risks and benefits of procedure. I think she has tried an injection and it did not help. She is aware of the risks including infection, damage to nerves in the area, recurrence and bowstringing of the tendon as well as bleeding and need for further surgery, she signed a consent. SURGEON: George Rangel DO DESCRIPTION OF PROCEDURE: The patient was taken to the operative suite, laid in supine position, given general anesthetic and a gram of Ancef and sedated and LMA was placed. The right upper extremity was then prepped and draped in sterile fashion. Assisted by Jeanmarie Cee, certified surgical first coat operator. He assisted with retraction as well as closing. After timeout had been performed, everyone was agreeance with the side, site, patient and procedure. The right upper extremity was exsanguinated with an Esmarch and tourniquet was inflated to 250 mmHg and was up to 9 minutes. Incision then began over the distal crease in the palm and with a 15-blade scalpel, and then careful dissection was made bluntly with Ragnell down to the A1 bradley. Once the A1 bradley was encountered, it was incised with scissors under direct visualization and any synovitis was removed from around the tendon. The tendon was then pulled out through the incision. There was no catching or locking and then the tourniquet was then let down and the site was injected with 0.25% Marcaine with epinephrine, approximately 5 mL. The skin was then closed with 5-0 Monocryl in a horizontal mattress fashion and dressed with Adaptic, 4 x 4s, Kerlix and a Coban lightly wrapped. She was awakened and taken to recovery in stable condition. ESTIMATED BLOOD LOSS: Minimal. COMPLICATIONS: None. TRANSINT:[id number] Voice Confirmation ID: [id number] DOCUMENT ID: [id number] GEORGE RANGEL DO at 0718 CC: [id number] DICTATION DATE: 03/27/19 120 SLEEVE SEWER: 03/27/19 1419 [facility] 03/27/19 [place] [id number] [place] [id number]
== END 2019-03-27 13:57 | disposition home or self-care (01) ==
LOC: D.OPS 08:20 → D.PAN 10:30 → D.OPS 10:30
PROVIDERS: Anesthesiology; ATTEND Orthopaedic Surgery
DX: M65.331 Trigger finger, right middle finger (principal); M75.121 Complete rotator cuff tear or rupture of right shoulder, not specified as traumatic

== ENCOUNTER → 2019-03-31 08:14 | Outpatient (CLI) | payer MEDICARE, BC ==
[2019-03-27 09:37] VITALS: BMI 33.3
[~2019-03-31 08:14] MED LIST changes: +DURICEF500 MG PO; +HYDROCODON-ACE1 EAC7 PO
== END | disposition home or self-care (01) ==
LOC: D.MRI 08:14
PROVIDERS: ATTEND Orthopaedic Surgery
DX: M25.511 Pain in right shoulder (principal)

== ENCOUNTER → 2019-10-26 10:34 | Outpatient (CLI) | payer MEDICARE, BC ==
[2019-05-26 13:50] VITALS: BMI 33.5
== END | disposition home or self-care (01) ==
LOC: D.US 10:34
PROVIDERS: ATTEND Family Medicine
DX: R93.89 Abnormal findings on diagnostic imaging of other specified body structures (principal)